=== PATIENT | female | born 1990 | race Caucasian/White ===

== ENCOUNTER 2024-01-10 08:44 | Emergency (ER) | payer BC ==
[2024-01-10] MEDS: Alum Hydrox/Mag Hydrox/Simeth 30 ML, Lidocaine 2% 15 ML PO ONE (09:04)
[2024-01-10] MEDS ORDERED: Sodium Chloride 0.9% 10 ML Syringe FLUSH PRN (09:13)
[2024-01-10] MEDS: Ondansetron 4 MG/2 ML SDV IVPUSH ONE (09:20)
[2024-01-10] MEDS: Lactated Ringers 1,000 ML IV ONE ×2 (09:20→10:36)
[2024-01-10] MEDS: HYDROmorphone 0.5 MG/0.5 ML Syringe IVPUSH ONE (09:20)
[2024-01-10 09:28] LABS: BASOPHILS PERCENT AUTO 0.2 % (0.2-1.2); EOSINOPHILS ABSOLUTE AUTO 1.6 x10^3/uL (0.0-0.5); EOSINOPHILS PERCENT AUTO 14.7 % (0.0-4.0); HEMATOCRIT 41.9 % (33.0-47.0); HEMOGLOBIN 14.7 g/dL (12.0-16.0); IMMATURE GRAN ABSOLUTE AUTO 0.02 x10^3/uL (0.00-0.07); LYMPHOCYTES ABSOLUTE AUTO 2.7 x10^3/uL (1.0-4.8); LYMPHOCYTES PERCENT AUTO 23.9 % (25.0-50.0); MEAN CORPUSCULAR HEMOGLOBIN 28.1 pg (26.0-32.0); MEAN CORPUSCULAR HGB CONC 35.1 g/dL (32.0-36.0); MONOCYTES ABSOLUTE AUTO 0.5 x10^3/uL (0.0-0.8); MONOCYTES PERCENT AUTO 4.6 % (2.0-11.0); NEUTROPHILS ABSOLUTE AUTO 6.3 x10^3/uL (1.8-7.7); NEUTROPHILS PERCENT AUTO 56.4 % (50.0-80.0); PLATELET COUNT,PLT 338 x10^3/uL (130-400); RED BLOOD CELL COUNT 5.24 x10^6/uL (4.00-5.50); WHITE BLOOD CELL COUNT,WBC 11.2 x10^3/uL (4.0-10.0)
[2024-01-10 09:50] LABS: INR 1.2 (0.9-1.1); PROTHROMBIN TIME 11.8 SEC (8.9-11.5); PTT,PARTIAL THROMBOPLSTIN TIME 27.4 SEC (21.9-33.8)
[2024-01-10 09:51] LABS: LACTIC ACID 0.9 mmol/L (0.4-2.0)
[2024-01-10 10:00] LABS: A/G RATIO 1.18; ALBUMIN 3.9 g/dL (3.4-5.0); BILIRUBIN TOTAL 0.5 mg/dL (0.2-1.0); C-REACTIVE PROTEIN 2.79 mg/dL (<=0.50); CALCIUM 9.1 mg/dL (8.5-10.1); CREATININE 0.8 mg/dL (0.55-1.02); EST CRCL DRUG DOSING (CG) 92.76 mL/min; POTASSIUM,K 3.4 mmol/L (3.5-5.1); PROTEIN TOTAL,TP 7.2 g/dL (6.4-8.2)
[2024-01-10 10:01] LABS: ANION GAP 17.4 mmol/L (5-15)
[2024-01-10 10:09] LABS: APPEARANCE,URINE CLEAR (CLEAR); BILIRUBIN,URINE SMALL (NEGATIVE); COLOR,URINE DARK YELLOW (YELLOW); GLUCOSE,URINE NEGATIVE (NEGATIVE); KETONES,URINE 15 mg/dL (NEGATIVE); LEUKOCYTE ESTERASE,URINE NEGATIVE (NEGATIVE); NITRITE,URINE NEGATIVE (NEGATIVE); OCCULT BLOOD,URINE NEGATIVE (NEGATIVE); PROTEIN,URINE 30 mg/dL (NEGATIVE); UROBILINOGEN,URINE 0.2 EU/dL (0.2)
[2024-01-10 10:16] LABS: BACTERIA,URINE FEW /HPF (NOT SEEN); MUCUS,URINE FEW /LPF (NOT SEEN); RBC,URINE 0-5 /HPF (NOT SEEN); SQUAMOUS EPITHELIAL CELLS,UR FEW /HPF (NOT SEEN); WBC,URINE 0-5 /HPF (NOT SEEN)
[2024-01-10] MEDS: Iopamidol 612 MG/ML 100 ML Bottle IVPUSH ONE (10:30)
== END 2024-01-10 11:47 | disposition home or self-care (01) ==
LOC: VM.ED 08:44
DX: G40.109 Localization-related (focal) (partial) symptomatic epilepsy and epileptic syndromes with simple partial seizures, not intractable, without status epilepticus (principal); Z88.8 Allergy status to other drugs, medicaments and biological substances
CPT/HCPCS: 36415; 74177; 80053; 81001; 82150; 83605; 83690; 83735; 85025; 85610; 85730; 86140; 96361; 96374; 96375; 99284; A9270; J1170; J2405; J7120; Q9967